=== PATIENT | female | born 1995 | race Caucasian/White ===

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

== ENCOUNTER 2020-07-25 11:53 | Inpatient (IN) ==
[2020-07-25] MEDS ORDERED: Buffered Lidocaine 1% SYRIN 1 ml INTRADERM ONE (12:35)
[2020-07-25] MEDS ORDERED: Lactated Ringers 1000 ml BAG 1,000 ML IV ONE (12:35)
[2020-07-25] MEDS ORDERED: Lactated Ringers 1000 ml BAG 1,000 ML IV SCH (13:00)
[2020-07-25 13:33] LABS: Urine Benzodiazepine Screen None Detected (None Detect); Urine Cannabinoids Screen None Detected (None Detect); Urine Opiates Screen None Detected (None Detect)
[2020-07-26] MEDS ORDERED: Witch Hazel PAD JAR TOPICAL PRN (01:15)
[2020-07-26] MEDS ORDERED: Dibucaine 1% OINT 28.35 GM TUBE PR PRN (01:15)
[2020-07-26] MEDS ORDERED: Glycerin ADULT 2.4 gm SUPP PR PRN (01:15)
[2020-07-26] MEDS ORDERED: Lactated Ringers 1000 ml BAG 1,000 ML IV SCH (02:00)
[2020-07-27 06:51] LABS: ABS Eosinophils 0.1 10^3/ul (0-0.6); ABS Lymphocytes 3.3 10^3/ul (1.0-4.8); ABS Monocytes 0.7 10^3/ul (0-0.8); ABS Neutrophils 5.3 10^3/ul (1.5-7.7); Eosinophil % 1.4 %; Hematocrit 29 % (35-47); Hemoglobin 9.8 g/dL (12.0-16.0); Lymphocyte % 35.1 %; Mean Corpuscular HGB Conc 34 g/dL (31-36); Mean Corpuscular Hemoglobin 28 pg (27-31); Mean Corpuscular Volume 83 fL (80-97); Mean Platelet Volume 9.8 fL (7.4-10.4); Platelet Count 141 10^3/uL (150-450); Red Cell Distribution Width 14 % (10-15); White Blood Count 9.4 10^3/uL (3.5-10.8)
[2020-07-27 08:32] VITALS: BP 117/75
== END 2020-07-27 14:25 | disposition home or self-care (01) | DRG 560 ==
LOC: MCHOBOUT 11:53 → MCHOB 12:33
PROVIDERS: ADMIT Midwife; ATTEND Midwife